=== PATIENT | female | born 1980 | race Caucasian/White ===

== ENCOUNTER → 2018-08-30 | Outpatient (CLI) | payer OTHER ==
[~2018-08-30] MED LIST: ATENOLOL 50 MG50 M1 PO; BENTYL20 MG PO; CYMBALTA60 MG; GABAPENTIN100 MG PO; NORTHYX10 MG PO; NORTHYX20 MG PO; ROBAXIN 750 MG750 M1 PO; SYNTHROID88 MCG PO; VICODIN 5-5001 EACH PO; VICOPROFEN 2001 EACH PO
== END ==
LOC: CAT 14:52
DX: Z13.6 Encounter for screening for cardiovascular disorders (principal); E78.00 Pure hypercholesterolemia, unspecified; I25.10 Atherosclerotic heart disease of native coronary artery without angina pectoris